=== PATIENT | male | born 1940 | race Asian ===

== ENCOUNTER 2017-05-22 10:07 | Inpatient (IN) | payer OTHER ==
[~2017-05-22] VITALS: Ht 170.2 cm; Wt 73.0 kg
[~2017-05-22 10:07] MED LIST: AMLO5TAB4 PO; LOSA100T11 PO; SIMV10TA6 PO
[2017-05-22 10:25] VITALS: BP_SYST 142
[2017-05-22 13:01] LABS: BASOPHILS % (AUTO) 0.3 % (0.0-2.0); HEMATOCRIT 46.5 % (36-54); HEMOGLOBIN 15.5 g/dL (14.0-18.0); LYMPHOCYTES % (AUTO) 6.4 % (20.5-51.5); MEAN CORPUSCULAR HEMOGLOBIN 31 pg (27-31); MEAN CORPUSCULAR HGB CONC 33 % (32-36); MEAN CORPUSCULAR VOLUME 93 fL (79.0-98.0); MONOCYTES # (AUTO) 1.1 K/uL (0.0-1.0); MONOCYTES % (AUTO) 6.9 % (1.7-9.3); NEUTROPHILS # (AUTO) 13.4 K/uL (1.8-7.7); NEUTROPHILS % (AUTO) 86.4 % (40.0-70.0); PLATELET COUNT (AUTO) 325 K/uL (130-430); RED BLOOD CELL COUNT(AUTO) 5.01 MIL/uL (4.2-6.2); RED CELL DISTRIBUTION WIDTH 12.7 % (9.0-15.0); WHITE BLOOD COUNT (AUTO) 15.5 K/uL (4.8-10.8)
[2017-05-22 13:03] LABS: ANION GAP 16 (5-15); CALCIUM 9.3 mg/dL (8.4-11.0); CHLORIDE 107 mmol/L (98-107); CREATININE 1.38 mg/dL (0.55-1.30); GLUCOSE 158 mg/dL (70-99); SODIUM SERUM 146 mmol/L (136-145); UREA NITROGEN, BLOOD 30 mg/dL (8-21)
[2017-05-22 13:11] LABS: ALANINE AMINOTRANSFERASE 16 U/L (12-78); ALBUMIN 3.8 g/dL (3.4-4.8); AMYLASE 48 U/L (0-100); ASPARTATE AMINOTRANSFERASE 22 U/L (10-37); LIPASE 119 U/L (73-393); TOTAL BILIRUBIN 1.3 mg/dL (0.0-1.0)
[2017-05-22 13:15] LABS: POTASSIUM 2.8 mmol/L (3.5-5.1)
[2017-05-22] MEDS ORDERED: KCL 40 mEq in D5W 1000 mL 1,000 ML IV ONE (13:30)
[2017-05-22] MEDS ORDERED: POTASSIUM CHLORIDE 20 MEQ/PKT PACKET PO ONE (13:30)
[2017-05-22] MEDS ORDERED: SULF1TAB48 PO (13:55)
[2017-05-22] MEDS ORDERED: HYT1 PO (13:55)
[2017-05-22] MEDS ORDERED: GLU850 PO (13:55)
[2017-05-22] MEDS ORDERED: GLIM2TAB2 PO (13:56)
[2017-05-22] MEDS ORDERED: HYDROmorphone 1 MG INJ. 1 MG/ML AMPUL IVP ONE (14:00)
[2017-05-22 17:03] VITALS: BP_SYST 152
[2017-05-22] MEDS ORDERED: ONDANSETRON HCL 4 MG/2 ML VIAL IVP PRN (18:00)
[2017-05-22] MEDS ORDERED: PIPERACILLIN/TAZO 4.5GM/DEX-IS 100 ML IV SCH (18:00)
[2017-05-22] MEDS ORDERED: POTASSIUM CHLORIDE 40 MEQ in 0.45% NS 250 ML IV ONE (18:00)
[2017-05-22] MEDS ORDERED: PANTOPRAZOLE SODIUM 40 MG/VIAL (PROTONIX) IVP SCH (18:30)
[2017-05-22 19:15] VITALS: BP_SYST 124
[2017-05-22] MEDS: PIPERACILLIN/TAZO 4.5GM/DEX-IS 100 ML IV SCH (20:10)
[2017-05-22] MEDS ORDERED: COMMUNICATION ORDER XX ONE (22:15)
[2017-05-22] MEDS: ACETAMINOPHEN 650 MG SUPP.RECT RC PRN (22:18)
[2017-05-22] MEDS ORDERED: METOCLOPRAMIDE HCL 10 MG/2 ML VIAL IVP PRN (22:45)
[2017-05-22 23:12] LABS: HEMATOCRIT 49.1 % (36-54); HEMOGLOBIN 16.1 g/dL (14.0-18.0); MEAN CORPUSCULAR HEMOGLOBIN 30 pg (27-31); MEAN CORPUSCULAR HGB CONC 33 % (32-36); MEAN CORPUSCULAR VOLUME 92 fL (79.0-98.0); PLATELET COUNT (AUTO) 334 K/uL (130-430); RED BLOOD CELL COUNT(AUTO) 5.33 MIL/uL (4.2-6.2); RED CELL DISTRIBUTION WIDTH 12.6 % (9.0-15.0)
[2017-05-22 23:28] LABS: ANION GAP 13 (5-15); CALCIUM 9.3 mg/dL (8.4-11.0); CHLORIDE 106 mmol/L (98-107); CREATININE 1.53 mg/dL (0.55-1.30); GLUCOSE 178 mg/dL (70-99); POTASSIUM 3.5 mmol/L (3.5-5.1); SODIUM SERUM 141 mmol/L (136-145); UREA NITROGEN, BLOOD 36 mg/dL (8-21)
[2017-05-22 23:29] VITALS: BP_SYST 146
[2017-05-22 23:33] LABS: ALANINE AMINOTRANSFERASE 18 U/L (12-78); ALBUMIN 3.6 g/dL (3.4-4.8); ASPARTATE AMINOTRANSFERASE 15 U/L (10-37); TOTAL BILIRUBIN 1.9 mg/dL (0.0-1.0)
[2017-05-22 23:48] LABS: ATYPICAL LYMPHOCYTES % 2 % (0-0); BAND % (MANUAL) 26 % (0-6); BASOPHILS % (MANUAL) 0 % (0-2); EOSINOPHILS % (MANUAL) 0 % (0-7); LYMPHOCYTES % (MANUAL) 3 % (20-46); MONOCYTES % (MANUAL) 2 % (0-11)
[2017-05-23] VITALS (24 sets, daily range): BP systolic 84–162
[2017-05-23] MEDS: PANTOPRAZOLE SODIUM 40 MG in NS 50 ML IVP SCH ×4 (00:58→21:00)
[2017-05-23] MEDS ORDERED: PANTOPRAZOLE SODIUM 40 MG/VIAL (PROTONIX) ONE ×2 (01:04→07:04)
[2017-05-23] MEDS: PIPERACILLIN/TAZO 4.5GM/DEX-IS 100 ML IV SCH ×3 (02:16→19:47)
[2017-05-23 07:28] LABS: HEMATOCRIT 50.4 % (36-54); HEMOGLOBIN 16.4 g/dL (14.0-18.0); LYMPHOCYTES # (AUTO) 0.9 K/uL (1.0-5.5); LYMPHOCYTES % (AUTO) 8.3 % (20.5-51.5); MEAN CORPUSCULAR HEMOGLOBIN 31 pg (27-31); MEAN CORPUSCULAR HGB CONC 32 % (32-36); MEAN CORPUSCULAR VOLUME 94 fL (79.0-98.0); MONOCYTES # (AUTO) 0.4 K/uL (0.0-1.0); MONOCYTES % (AUTO) 3.9 % (1.7-9.3); NEUTROPHILS # (AUTO) 9.5 K/uL (1.8-7.7); PLATELET COUNT (AUTO) 337 K/uL (130-430); RED BLOOD CELL COUNT(AUTO) 5.36 MIL/uL (4.2-6.2); RED CELL DISTRIBUTION WIDTH 13.1 % (9.0-15.0); WHITE BLOOD COUNT (AUTO) 10.8 K/uL (4.8-10.8)
[2017-05-23] MEDS: NACL 0.9% 1,000 ML IV SCH ×2 (07:30→17:30)
[2017-05-23 07:31] LABS: ALANINE AMINOTRANSFERASE 18 U/L (12-78); ALBUMIN 3.3 g/dL (3.4-4.8); ANION GAP 13 (5-15); ASPARTATE AMINOTRANSFERASE 18 U/L (10-37); CALCIUM 9.3 mg/dL (8.4-11.0); CHLORIDE 110 mmol/L (98-107); CREATININE 1.64 mg/dL (0.55-1.30); GLUCOSE 138 mg/dL (70-99); POTASSIUM 3.4 mmol/L (3.5-5.1); SODIUM SERUM 144 mmol/L (136-145); UREA NITROGEN, BLOOD 39 mg/dL (8-21)
[2017-05-23] MEDS ORDERED: GASTROGRAFIN 120 ML ONE (08:48)
[2017-05-23 08:59] LABS: NEUTROPHILS % (AUTO) 87.8 % (40.0-70.0)
[2017-05-23] MEDS ORDERED: NS 500 ML IV ONE (10:00)
[2017-05-23] MEDS: MORPHINE 2 MG/ML INJ. SYRINGE IVP PRN ×2 (10:44→21:16)
[2017-05-23 11:44] LABS: INR 1.1 (0.80-1.20); PROTHROMBIN TIME 11.5 SECS (9.5-12.5)
[2017-05-23] MEDS: metroNIDAZOLE 500 mg/NS 100 ML IV SCH ×4 (12:30→23:28)
[2017-05-23] MEDS ORDERED: NACL 0.9% 1,000 ML IV SCH (12:52)
[2017-05-23] MEDS ORDERED: HYDROmorphone 1 MG INJ. 1 MG/ML AMPUL IVP PRN (13:00)
[2017-05-23] MEDS ORDERED: HYDROmorphone 2 MG/ML VIAL IVP PRN ×2 (13:00)
[2017-05-23] MEDS ORDERED: ePHEDrine sulfate 50 MG/ML VIAL IVP PRN (13:00)
[2017-05-23] MEDS ORDERED: MEPERIDINE HCL/PF 25 MG/ML DISP.SYRIN IVP PRN ×2 (13:00)
[2017-05-23] MEDS ORDERED: ONDANSETRON HCL 4 MG/2 ML VIAL IVP PRN (13:00)
[2017-05-23] MEDS ORDERED: POLYMYXIN 500,000/BACIT.10,000 UNITS in NS IRR 1 L IR ONE (13:30)
[2017-05-23] MEDS ORDERED: NACL 0.9% 1,000 ML IV ONE ×2 (16:59→20:33)
[2017-05-23] MEDS ORDERED: LORazepam 2 MG/ML VIAL IVP PRN (17:15)
[2017-05-23] MEDS: NOREPINEPHRINE BITARTRATE 4 MG in NS 246 ML IV PRN (18:09)
[2017-05-23] MEDS ORDERED: SODIUM BICARBONATE 8.4% JECT 50 MEQ/50 ML SYRINGE IVP ONE (20:45)
[2017-05-23] MEDS ORDERED: SODIUM BICARBONATE 8.4% JECT 50 MEQ/50 ML SYRINGE ONE (20:56)
[2017-05-23 23:34] LABS: BILIRUBIN,URINE 1+ (NEGATIVE); BLOOD, URINE 3+ (NEGATIVE); CLARITY/URINE CLEAR (CLEAR); COLOR,URINE YELLOW (YELLOW); GLUCOSE,URINE NEGATIVE (NEGATIVE); KETONES,URINE TRACE (NEGATIVE); LEUKOCYTE ESTERASE ,URINE NEGATIVE (NEGATIVE); NITRITE, URINE NEGATIVE (NEGATIVE); PH,URINE 5.5 (5.0-8.0); PROTEIN URINE 2+ (NEGATIVE); UROBILINOGEN,URINE 0.2 (0.2-1.0)
[2017-05-23 23:42] LABS: BACTERIA,URINE MODERATE /HPF (None Seen); FINE GRANULAR CASTS,URINE 0-10 /LPF (None Seen); WBC,URINE 0-3 /HPF (0-3)
[2017-05-23 23:48] LABS: ALANINE AMINOTRANSFERASE 57 U/L (12-78); ALBUMIN 2.2 g/dL (3.4-4.8); ANION GAP 15 (5-15); ASPARTATE AMINOTRANSFERASE 81 U/L (10-37); CALCIUM 7.5 mg/dL (8.4-11.0); CREATININE 2.88 mg/dL (0.55-1.30); GLUCOSE 84 mg/dL (70-99); SODIUM SERUM 154 mmol/L (136-145); TOTAL BILIRUBIN 1.1 mg/dL (0.0-1.0); UREA NITROGEN, BLOOD 52 mg/dL (8-21)
[2017-05-23 23:52] LABS: CHLORIDE 121 mmol/L (98-107)
[2017-05-24] VITALS (27 sets, daily range): BP systolic 72–149
[2017-05-24] MEDS ORDERED: HYDROCORTISONE SOD SUCC 100 MG/2 ML VIAL ONE (00:40)
[2017-05-24] MEDS ORDERED: HYDROCORTISONE SOD SUCC 100 MG/2 ML VIAL IVP ONE (00:45)
[2017-05-24] MEDS: D5W 1,000 ML IV SCH ×4 (01:01→14:51)
[2017-05-24] MEDS ORDERED: DEXTROSE 50% JECT 50 ML DISP.SYRIN ONE (01:03)
[2017-05-24] MEDS: ACETAMINOPHEN 650 MG SUPP.RECT RC PRN (02:06)
[2017-05-24] MEDS: PANTOPRAZOLE SODIUM 40 MG in NS 50 ML IVP SCH ×2 (02:07→05:56)
[2017-05-24] MEDS: PIPERACILLIN/TAZO 4.5GM/DEX-IS 100 ML IV SCH ×3 (02:07→17:31)
[2017-05-24] MEDS: NOREPINEPHRINE BITARTRATE 4 MG in NS 246 ML IV PRN ×3 (04:15→22:20)
[2017-05-24] MEDS: metroNIDAZOLE 500 mg/NS 100 ML IV SCH ×3 (05:55→15:00)
[2017-05-24] MEDS: HYDROCORTISONE SOD SUCC 100 MG/2 ML VIAL IVP SCH ×3 (06:01→22:01)
[2017-05-24 06:16] LABS: HEMOGLOBIN 15.9 g/dL (14.0-18.0); LYMPHOCYTES # (AUTO) 0.5 K/uL (1.0-5.5); MEAN CORPUSCULAR HEMOGLOBIN 30 pg (27-31); MEAN CORPUSCULAR HGB CONC 32 % (32-36); MEAN CORPUSCULAR VOLUME 95 fL (79.0-98.0); MONOCYTES # (AUTO) 0.4 K/uL (0.0-1.0); MONOCYTES % (AUTO) 4.4 % (1.7-9.3); NEUTROPHILS # (AUTO) 7.1 K/uL (1.8-7.7); PLATELET COUNT (AUTO) 216 K/uL (130-430); RED BLOOD CELL COUNT(AUTO) 5.28 MIL/uL (4.2-6.2); RED CELL DISTRIBUTION WIDTH 13.5 % (9.0-15.0)
[2017-05-24 06:46] LABS: NEUTROPHILS % (AUTO) 89.6 % (40.0-70.0)
[2017-05-24 06:57] LABS: ALANINE AMINOTRANSFERASE 85 U/L (12-78); ALBUMIN 1.9 g/dL (3.4-4.8); ANION GAP 13 (5-15); ASPARTATE AMINOTRANSFERASE 119 U/L (10-37); CALCIUM 7.2 mg/dL (8.4-11.0); CREATININE 4.25 mg/dL (0.55-1.30); GLUCOSE 215 mg/dL (70-99); POTASSIUM 3.1 mmol/L (3.5-5.1); SODIUM SERUM 152 mmol/L (136-145); TOTAL BILIRUBIN 0.8 mg/dL (0.0-1.0); UREA NITROGEN, BLOOD 58 mg/dL (8-21)
[2017-05-24 07:00] LABS: CHLORIDE 120 mmol/L (98-107)
[2017-05-24] MEDS ORDERED: KCL 20 mEq in 100 mL (PREMIX) 200 ML IV ONE (08:15)
[2017-05-24] MEDS ORDERED: ALBUMIN HUMAN 25% 200 ML IV ONE (08:30)
[2017-05-24] MEDS: PHENYLEPHRINE HCL 30 MG in NS 247 ML IV PRN (09:22)
[2017-05-24] MEDS ORDERED: HEPARIN SODIUM,PORCINE 5000 UNITS/ML VIAL ONE (09:29)
[2017-05-24] MEDS: FLUCONAZOLE 400 mg/ NS 200 ML IV SCH (10:32)
[2017-05-24] MEDS ORDERED: GLUCOSE 15 GM GEL (in 37.5 GM TUBE) PO PRN ×2 (12:45)
[2017-05-24] MEDS ORDERED: DEXTROSE 50%-WATER 50 ML DISP.SYRIN IVP PRN ×2 (12:45)
[2017-05-24 16:48] LABS: URINE SODIUM, RANDOM 21 mmol/L (40-220)
[2017-05-24] MEDS: INSULIN REGULAR, HUMAN 100 UNITS/ML, 10 ML VIAL (novoLIN R) SUBCUT PRN (17:19)
[2017-05-24] MEDS ORDERED: DIGOXIN 0.5 MG/2 ML AMP IVP ONE (18:30)
[2017-05-24] MEDS ORDERED: DIGOXIN 0.5 MG/2 ML AMP ONE (18:34)
[2017-05-24] MEDS ORDERED: NOREPINEPHRINE 4 MG/4 ML VIAL IV ONE (20:37)
[2017-05-25] VITALS (30 sets, daily range): BP systolic 79–143
[2017-05-25] MEDS: PIPERACILLIN/TAZO 4.5GM/DEX-IS 100 ML IV SCH ×3 (02:41→19:23)
[2017-05-25] MEDS: D5W 1,000 ML IV SCH ×4 (02:41→23:40)
[2017-05-25] MEDS ORDERED: NOREPINEPHRINE 4 MG/4 ML VIAL IV ONE (04:15)
[2017-05-25 06:20] LABS: INR 1.4 (0.80-1.20); PROTHROMBIN TIME 15.8 SECS (9.5-12.5)
[2017-05-25] MEDS: metroNIDAZOLE 500 mg/NS 100 ML IV SCH ×3 (06:20→21:38)
[2017-05-25] MEDS: HYDROCORTISONE SOD SUCC 100 MG/2 ML VIAL IVP SCH ×3 (06:21→21:37)
[2017-05-25 06:24] LABS: BASOPHILS % (AUTO) 0.1 % (0.0-2.0); EOSINOPHILS % (AUTO) 0.1 % (0.0-4.0); LYMPHOCYTES # (AUTO) 0.5 K/uL (1.0-5.5); LYMPHOCYTES % (AUTO) 4.7 % (20.5-51.5); MEAN CORPUSCULAR HEMOGLOBIN 32 pg (27-31); MEAN CORPUSCULAR HGB CONC 34 % (32-36); MEAN CORPUSCULAR VOLUME 93 fL (79.0-98.0); MONOCYTES # (AUTO) 0.4 K/uL (0.0-1.0); MONOCYTES % (AUTO) 3.8 % (1.7-9.3); NEUTROPHILS # (AUTO) 9.2 K/uL (1.8-7.7); NEUTROPHILS % (AUTO) 91.3 % (40.0-70.0); PLATELET COUNT (AUTO) 161 K/uL (130-430); RED BLOOD CELL COUNT(AUTO) 4.09 MIL/uL (4.2-6.2); RED CELL DISTRIBUTION WIDTH 13.3 % (9.0-15.0); WHITE BLOOD COUNT (AUTO) 10.1 K/uL (4.8-10.8)
[2017-05-25 06:51] LABS: ALANINE AMINOTRANSFERASE 83 U/L (12-78); ALBUMIN 2.2 g/dL (3.4-4.8); ANION GAP 13 (5-15); ASPARTATE AMINOTRANSFERASE 90 U/L (10-37); CHLORIDE 110 mmol/L (98-107); CREATININE 5.22 mg/dL (0.55-1.30); GLUCOSE 207 mg/dL (70-99); SODIUM SERUM 143 mmol/L (136-145); TOTAL BILIRUBIN 0.8 mg/dL (0.0-1.0); UREA NITROGEN, BLOOD 57 mg/dL (8-21)
[2017-05-25] MEDS: INSULIN REGULAR, HUMAN 100 UNITS/ML, 10 ML VIAL (novoLIN R) SUBCUT PRN (06:56)
[2017-05-25 07:03] LABS: CALCIUM 6.9 mg/dL (8.4-11.0); POTASSIUM 2.3 mmol/L (3.5-5.1)
[2017-05-25] MEDS: NOREPINEPHRINE BITARTRATE 4 MG in NS 246 ML IV PRN ×2 (08:12→19:57)
[2017-05-25] MEDS: FLUCONAZOLE 400 mg/ NS 200 ML IV SCH (08:26)
[2017-05-25] MEDS: MORPHINE 2 MG/ML INJ. SYRINGE IVP PRN ×2 (08:36→17:07)
[2017-05-25] MEDS: ACETAMINOPHEN 650 MG SUPP.RECT RC PRN (08:45)
[2017-05-25] MEDS ORDERED: KCL 40 mEq in 100 mL (PREMIX) 100 ML IV ONE (08:45)
[2017-05-25] MEDS ORDERED: CALCIUM GLUCONATE 1 GM in NS 100 ML IV ONE (08:45)
[2017-05-26] VITALS (30 sets, daily range): BP systolic 95–161
[2017-05-26] MEDS: PIPERACILLIN/TAZO 4.5GM/DEX-IS 100 ML IV SCH ×3 (02:58→18:04)
[2017-05-26] MEDS: HYDROCORTISONE SOD SUCC 100 MG/2 ML VIAL IVP SCH ×2 (05:18→20:35)
[2017-05-26] MEDS: metroNIDAZOLE 500 mg/NS 100 ML IV SCH ×3 (05:19→21:24)
[2017-05-26] MEDS: INSULIN REGULAR, HUMAN 100 UNITS/ML, 10 ML VIAL (novoLIN R) SUBCUT PRN (05:39)
[2017-05-26 06:40] LABS: ALANINE AMINOTRANSFERASE 94 U/L (12-78); ANION GAP 13 (5-15); ASPARTATE AMINOTRANSFERASE 88 U/L (10-37); BILIRUBIN,DIRECT 0.3 mg/dL (0.0-0.3); CALCIUM 7.1 mg/dL (8.4-11.0); CHLORIDE 110 mmol/L (98-107); CREATININE 4.84 mg/dL (0.55-1.30); GLUCOSE 221 mg/dL (70-99); SODIUM SERUM 143 mmol/L (136-145); TOTAL BILIRUBIN 0.6 mg/dL (0.0-1.0); UREA NITROGEN, BLOOD 56 mg/dL (8-21)
[2017-05-26 06:48] LABS: POTASSIUM 2.6 mmol/L (3.5-5.1)
[2017-05-26 06:50] LABS: BASOPHILS % (AUTO) 0.1 % (0.0-2.0); HEMATOCRIT 37.5 % (36-54); HEMOGLOBIN 12.4 g/dL (14.0-18.0); LYMPHOCYTES # (AUTO) 0.3 K/uL (1.0-5.5); LYMPHOCYTES % (AUTO) 2.7 % (20.5-51.5); MEAN CORPUSCULAR HEMOGLOBIN 31 pg (27-31); MEAN CORPUSCULAR HGB CONC 33 % (32-36); MEAN CORPUSCULAR VOLUME 94 fL (79.0-98.0); MONOCYTES # (AUTO) 0.3 K/uL (0.0-1.0); MONOCYTES % (AUTO) 3.2 % (1.7-9.3); NEUTROPHILS # (AUTO) 9.2 K/uL (1.8-7.7); PLATELET COUNT (AUTO) 128 K/uL (130-430); RED BLOOD CELL COUNT(AUTO) 4.01 MIL/uL (4.2-6.2); RED CELL DISTRIBUTION WIDTH 13.7 % (9.0-15.0); WHITE BLOOD COUNT (AUTO) 9.8 K/uL (4.8-10.8)
[2017-05-26] MEDS ORDERED: POTASSIUM CHLORIDE 40 MEQ in NS 250 ML IV ONE (07:30)
[2017-05-26] MEDS: FLUCONAZOLE 400 mg/ NS 200 ML IV SCH (09:26)
[2017-05-26] MEDS: D5W 1,000 ML IV SCH ×2 (12:00→20:36)
[2017-05-26] MEDS: MORPHINE 2 MG/ML INJ. SYRINGE IVP PRN ×2 (16:00→23:30)
[2017-05-27] VITALS (33 sets, daily range): BP systolic 88–173
[2017-05-27] MEDS: PIPERACILLIN/TAZO 4.5GM/DEX-IS 100 ML IV SCH ×2 (02:46→17:53)
[2017-05-27] MEDS: D5W 1,000 ML IV SCH ×3 (03:12→18:36)
[2017-05-27] MEDS: metroNIDAZOLE 500 mg/NS 100 ML IV SCH ×3 (05:12→21:40)
[2017-05-27 06:27] LABS: BASOPHILS % (AUTO) 0.3 % (0.0-2.0); HEMATOCRIT 42.2 % (36-54); HEMOGLOBIN 13.8 g/dL (14.0-18.0); LYMPHOCYTES # (AUTO) 0.4 K/uL (1.0-5.5); MEAN CORPUSCULAR HEMOGLOBIN 31 pg (27-31); MEAN CORPUSCULAR HGB CONC 33 % (32-36); MEAN CORPUSCULAR VOLUME 94 fL (79.0-98.0); MONOCYTES # (AUTO) 0.4 K/uL (0.0-1.0); MONOCYTES % (AUTO) 2.5 % (1.7-9.3); NEUTROPHILS # (AUTO) 13.9 K/uL (1.8-7.7); NEUTROPHILS % (AUTO) 94.2 % (40.0-70.0); PLATELET COUNT (AUTO) 156 K/uL (130-430); RED BLOOD CELL COUNT(AUTO) 4.51 MIL/uL (4.2-6.2); RED CELL DISTRIBUTION WIDTH 13.6 % (9.0-15.0); WHITE BLOOD COUNT (AUTO) 14.7 K/uL (4.8-10.8)
[2017-05-27 06:51] LABS: ALANINE AMINOTRANSFERASE 102 U/L (12-78); ALBUMIN 2.2 g/dL (3.4-4.8); ANION GAP 13 (5-15); ASPARTATE AMINOTRANSFERASE 72 U/L (10-37); BILIRUBIN,DIRECT 0.4 mg/dL (0.0-0.3); CALCIUM 7.7 mg/dL (8.4-11.0); CHLORIDE 113 mmol/L (98-107); CREATININE 4.38 mg/dL (0.55-1.30); GLUCOSE 208 mg/dL (70-99); SODIUM SERUM 148 mmol/L (136-145); TOTAL BILIRUBIN 0.8 mg/dL (0.0-1.0); UREA NITROGEN, BLOOD 56 mg/dL (8-21)
[2017-05-27 06:58] LABS: POTASSIUM 2.3 mmol/L (3.5-5.1)
[2017-05-27] MEDS: HYDROCORTISONE SOD SUCC 100 MG/2 ML VIAL IVP SCH ×2 (08:39→20:46)
[2017-05-27] MEDS: FLUCONAZOLE 400 mg/ NS 200 ML IV SCH (08:39)
[2017-05-27] MEDS ORDERED: POTASSIUM CHLORIDE 40 MEQ in NS 250 ML IV ONE (09:30)
[2017-05-27] MEDS ORDERED: DEXTROSE 50% JECT 50 ML DISP.SYRIN IVP PRN (09:30)
[2017-05-27] MEDS ORDERED: *TPN PER PHARMACY XX PRN (09:30)
[2017-05-27] MEDS: MORPHINE 2 MG/ML INJ. SYRINGE IVP PRN ×6 (09:48→23:48)
[2017-05-27] MEDS ORDERED: FLUCONAZOLE 200 mg/ NS 100 ML IV SCH (10:15)
[2017-05-27] MEDS: KCL 40 mEq in 100 mL (PREMIX) 100 ML IV ONE ×2 (10:25→11:08)
[2017-05-27 11:05] LABS: PHOSPHORUS 2.8 mg/dL (2.7-4.5)
[2017-05-27] MEDS: INSULIN REGULAR, HUMAN 100 UNITS/ML, 10 ML VIAL (novoLIN R) SUBCUT PRN ×2 (15:25→21:41)
[2017-05-27] MEDS: FAT EMULSIONS 250 ML IV SCH (17:56)
[2017-05-27] MEDS ORDERED: CALCIUM GLUCONATE IV SCH ×7 (18:00)
[2017-05-27] MEDS ORDERED: TPN CENTRAL IV SCH ×7 (18:00)
[2017-05-27] MEDS ORDERED: [UNRECOGNIZED DRUG - OTHER] IV SCH ×7 (18:00)
[2017-05-27] MEDS ORDERED: POTASSIUM ACETATE IV SCH ×7 (18:00)
[2017-05-27] MEDS: LORazepam 2 MG/ML VIAL IVP PRN (20:46)
[2017-05-28] VITALS (35 sets, daily range): BP systolic 115–176
[2017-05-28] MEDS: PIPERACILLIN/TAZO 4.5GM/DEX-IS 100 ML IV SCH ×3 (02:04→17:32)
[2017-05-28] MEDS: LORazepam 2 MG/ML VIAL IVP PRN (02:04)
[2017-05-28] MEDS: INSULIN REGULAR, HUMAN 100 UNITS/ML, 10 ML VIAL (novoLIN R) SUBCUT PRN ×4 (04:35→20:45)
[2017-05-28] MEDS: MORPHINE 2 MG/ML INJ. SYRINGE IVP PRN ×4 (04:36→16:06)
[2017-05-28] MEDS: metroNIDAZOLE 500 mg/NS 100 ML IV SCH ×3 (05:19→21:20)
[2017-05-28 06:29] LABS: EOSINOPHILS % (AUTO) 0.1 % (0.0-4.0); HEMOGLOBIN 12.6 g/dL (14.0-18.0); LYMPHOCYTES # (AUTO) 0.3 K/uL (1.0-5.5); LYMPHOCYTES % (AUTO) 2.3 % (20.5-51.5); MEAN CORPUSCULAR HEMOGLOBIN 31 pg (27-31); MEAN CORPUSCULAR HGB CONC 33 % (32-36); MEAN CORPUSCULAR VOLUME 93 fL (79.0-98.0); MONOCYTES # (AUTO) 0.6 K/uL (0.0-1.0); MONOCYTES % (AUTO) 4.2 % (1.7-9.3); NEUTROPHILS % (AUTO) 93.4 % (40.0-70.0); PLATELET COUNT (AUTO) 148 K/uL (130-430); RED BLOOD CELL COUNT(AUTO) 4.08 MIL/uL (4.2-6.2); RED CELL DISTRIBUTION WIDTH 13.9 % (9.0-15.0); WHITE BLOOD COUNT (AUTO) 13.9 K/uL (4.8-10.8)
[2017-05-28 07:03] LABS: ALANINE AMINOTRANSFERASE 87 U/L (12-78); ALBUMIN 1.8 g/dL (3.4-4.8); ANION GAP 10 (5-15); ASPARTATE AMINOTRANSFERASE 49 U/L (10-37); BILIRUBIN,DIRECT 0.4 mg/dL (0.0-0.3); CALCIUM 7.6 mg/dL (8.4-11.0); CHLORIDE 117 mmol/L (98-107); CREATININE 4.04 mg/dL (0.55-1.30); GLUCOSE 306 mg/dL (70-99); SODIUM SERUM 149 mmol/L (136-145); TOTAL BILIRUBIN 0.9 mg/dL (0.0-1.0); UREA NITROGEN, BLOOD 60 mg/dL (8-21)
[2017-05-28 07:10] LABS: POTASSIUM 2.3 mmol/L (3.5-5.1)
[2017-05-28] MEDS ORDERED: KCL 40 mEq in 100 mL (PREMIX) 100 ML IV ONE ×2 (07:45→12:00)
[2017-05-28] MEDS: D5W 1,000 ML IV SCH ×2 (08:43→17:06)
[2017-05-28] MEDS ORDERED: COMMUNICATION ORDER XX ONE (09:15)
[2017-05-28] MEDS: HYDROCORTISONE SOD SUCC 100 MG/2 ML VIAL IVP SCH ×2 (09:20→20:39)
[2017-05-28] MEDS: FLUCONAZOLE 400 mg/ NS 200 ML IV SCH (09:20)
[2017-05-28] MEDS ORDERED: POTASSIUM CHLORIDE 40 MEQ in 0.45% NS 250 ML IV ONE ×2 (09:30→13:30)
[2017-05-28] MEDS: ACETAMINOPHEN 650 MG SUPP.RECT RC PRN (16:13)
[2017-05-28] MEDS: FAT EMULSIONS 250 ML IV SCH (17:23)
[2017-05-28] MEDS ORDERED: TPN CENTRAL IV SCH ×7 (18:00)
[2017-05-28] MEDS ORDERED: [UNRECOGNIZED DRUG - OTHER] IV SCH ×7 (18:00)
[2017-05-28] MEDS ORDERED: POTASSIUM ACETATE IV SCH ×7 (18:00)
[2017-05-28] MEDS ORDERED: CALCIUM GLUCONATE IV SCH ×7 (18:00)
[2017-05-29] VITALS (32 sets, daily range): BP systolic 89–148
[2017-05-29] MEDS: PIPERACILLIN/TAZO 4.5GM/DEX-IS 100 ML IV SCH ×3 (02:18→19:21)
[2017-05-29] MEDS: INSULIN REGULAR, HUMAN 100 UNITS/ML, 10 ML VIAL (novoLIN R) SUBCUT PRN ×4 (03:19→21:09)
[2017-05-29] MEDS: metroNIDAZOLE 500 mg/NS 100 ML IV SCH ×3 (05:16→21:15)
[2017-05-29 06:53] LABS: ALANINE AMINOTRANSFERASE 77 U/L (12-78); ALBUMIN 1.8 g/dL (3.4-4.8); ANION GAP 11 (5-15); ASPARTATE AMINOTRANSFERASE 35 U/L (10-37); CALCIUM 7.7 mg/dL (8.4-11.0); CHLORIDE 117 mmol/L (98-107); CREATININE 3.96 mg/dL (0.55-1.30); GLUCOSE 345 mg/dL (70-99); PHOSPHORUS 3.8 mg/dL (2.7-4.5); SODIUM SERUM 149 mmol/L (136-145); TRIGLYCERIDES 111 mg/dL (30-150); UREA NITROGEN, BLOOD 57 mg/dL (8-21)
[2017-05-29 07:07] LABS: POTASSIUM 2.7 mmol/L (3.5-5.1)
[2017-05-29 07:10] LABS: HEMATOCRIT 41.6 % (36-54); HEMOGLOBIN 13.4 g/dL (14.0-18.0); LYMPHOCYTES # (AUTO) 0.3 K/uL (1.0-5.5); LYMPHOCYTES % (AUTO) 1.9 % (20.5-51.5); MEAN CORPUSCULAR HEMOGLOBIN 30 pg (27-31); MEAN CORPUSCULAR HGB CONC 32 % (32-36); MEAN CORPUSCULAR VOLUME 94 fL (79.0-98.0); MONOCYTES # (AUTO) 0.8 K/uL (0.0-1.0); MONOCYTES % (AUTO) 5.5 % (1.7-9.3); NEUTROPHILS # (AUTO) 13.2 K/uL (1.8-7.7); NEUTROPHILS % (AUTO) 92.6 % (40.0-70.0); PLATELET COUNT (AUTO) 203 K/uL (130-430); RED BLOOD CELL COUNT(AUTO) 4.45 MIL/uL (4.2-6.2); RED CELL DISTRIBUTION WIDTH 14.1 % (9.0-15.0)
[2017-05-29 07:31] LABS: WHITE BLOOD COUNT (AUTO) 14.3 K/uL (4.8-10.8)
[2017-05-29] MEDS: HYDROCORTISONE SOD SUCC 100 MG/2 ML VIAL IVP SCH ×2 (08:39→20:31)
[2017-05-29] MEDS: FLUCONAZOLE 400 mg/ NS 200 ML IV SCH (08:40)
[2017-05-29] MEDS ORDERED: POTASSIUM CHLORIDE 40 MEQ in 0.45% NS 250 ML IV ONE (09:00)
[2017-05-29] MEDS: D5W 1,000 ML IV SCH (12:18)
[2017-05-29] MEDS: ACETAMINOPHEN 650 MG SUPP.RECT RC PRN ×2 (13:28→20:46)
[2017-05-29] MEDS: POTASSIUM ACETATE IV SCH ×7 (18:21)
[2017-05-29] MEDS: CALCIUM GLUCONATE IV SCH ×7 (18:21)
[2017-05-29] MEDS: [UNRECOGNIZED DRUG - OTHER] IV SCH ×7 (18:21)
[2017-05-29] MEDS: TPN CENTRAL IV SCH ×7 (18:21)
[2017-05-29] MEDS: FAT EMULSIONS 250 ML IV SCH (18:22)
[2017-05-30] VITALS (34 sets, daily range): BP systolic 89–133
[2017-05-30] MEDS: PIPERACILLIN/TAZO 4.5GM/DEX-IS 100 ML IV SCH ×3 (02:11→18:32)
[2017-05-30] MEDS: INSULIN REGULAR, HUMAN 100 UNITS/ML, 10 ML VIAL (novoLIN R) SUBCUT PRN ×4 (03:21→21:42)
[2017-05-30] MEDS: D5W 1,000 ML IV SCH (05:31)
[2017-05-30 06:57] LABS: BASOPHILS # (AUTO) 0.1 K/uL (0.0-0.2); BASOPHILS % (AUTO) 0.6 % (0.0-2.0); HEMOGLOBIN 12.2 g/dL (14.0-18.0); LYMPHOCYTES # (AUTO) 0.7 K/uL (1.0-5.5); LYMPHOCYTES % (AUTO) 5.9 % (20.5-51.5); MEAN CORPUSCULAR HEMOGLOBIN 31 pg (27-31); MEAN CORPUSCULAR HGB CONC 33 % (32-36); MEAN CORPUSCULAR VOLUME 94 fL (79.0-98.0); MONOCYTES # (AUTO) 0.9 K/uL (0.0-1.0); MONOCYTES % (AUTO) 7.4 % (1.7-9.3); NEUTROPHILS # (AUTO) 10.7 K/uL (1.8-7.7); NEUTROPHILS % (AUTO) 86.1 % (40.0-70.0); PLATELET COUNT (AUTO) 186 K/uL (130-430); RED BLOOD CELL COUNT(AUTO) 3.95 MIL/uL (4.2-6.2); RED CELL DISTRIBUTION WIDTH 14.1 % (9.0-15.0); WHITE BLOOD COUNT (AUTO) 12.4 K/uL (4.8-10.8)
[2017-05-30 07:05] LABS: ALANINE AMINOTRANSFERASE 58 U/L (12-78); ALBUMIN 1.6 g/dL (3.4-4.8); ANION GAP 13 (5-15); ASPARTATE AMINOTRANSFERASE 29 U/L (10-37); CALCIUM 7.6 mg/dL (8.4-11.0); CHLORIDE 115 mmol/L (98-107); CREATININE 6.56 mg/dL (0.55-1.30); GLUCOSE 281 mg/dL (70-99); POTASSIUM 3.1 mmol/L (3.5-5.1); SODIUM SERUM 149 mmol/L (136-145); TOTAL BILIRUBIN 0.7 mg/dL (0.0-1.0); UREA NITROGEN, BLOOD 84 mg/dL (8-21)
[2017-05-30] MEDS ORDERED: NOREPINEPHRINE 4 MG/4 ML VIAL IV ONE (08:01)
[2017-05-30] MEDS: FLUCONAZOLE 400 mg/ NS 200 ML IV SCH (08:49)
[2017-05-30] MEDS: HYDROCORTISONE SOD SUCC 100 MG/2 ML VIAL IVP SCH ×2 (08:50→21:35)
[2017-05-30] MEDS ORDERED: ALBUMIN HUMAN 25% 100 ML IV ONE (10:00)
[2017-05-30] MEDS: metroNIDAZOLE 250 mg/NS 50 ML IV SCH ×2 (13:44→21:34)
[2017-05-30] MEDS: CALCIUM GLUCONATE IV SCH ×14 (18:33→23:22)
[2017-05-30] MEDS: POTASSIUM ACETATE IV SCH ×14 (18:33→23:22)
[2017-05-30] MEDS: [UNRECOGNIZED DRUG - OTHER] IV SCH ×14 (18:33→23:22)
[2017-05-30] MEDS: TPN CENTRAL IV SCH ×14 (18:33→23:22)
[2017-05-30] MEDS: FAT EMULSIONS 250 ML IV SCH (18:34)
[2017-05-31] VITALS (30 sets, daily range): BP systolic 52–208
[2017-05-31] MEDS: D5W 1,000 ML IV SCH (01:04)
[2017-05-31] MEDS: PIPERACILLIN/TAZO 4.5GM/DEX-IS 100 ML IV SCH ×3 (02:41→18:01)
[2017-05-31] MEDS: INSULIN REGULAR, HUMAN 100 UNITS/ML, 10 ML VIAL (novoLIN R) SUBCUT PRN ×4 (03:38→23:07)
[2017-05-31] MEDS: metroNIDAZOLE 250 mg/NS 50 ML IV SCH ×3 (05:11→23:09)
[2017-05-31 06:54] LABS: HEMATOCRIT 35.7 % (36-54); HEMOGLOBIN 12.4 g/dL (14.0-18.0); MEAN CORPUSCULAR HEMOGLOBIN 31 pg (27-31); MEAN CORPUSCULAR HGB CONC 35 % (32-36); MEAN CORPUSCULAR VOLUME 90 fL (79.0-98.0); PLATELET COUNT (AUTO) 197 K/uL (130-430); RED BLOOD CELL COUNT(AUTO) 3.96 MIL/uL (4.2-6.2); RED CELL DISTRIBUTION WIDTH 13.5 % (9.0-15.0); WHITE BLOOD COUNT (AUTO) 22.7 K/uL (4.8-10.8)
[2017-05-31 07:02] LABS: ALANINE AMINOTRANSFERASE 55 U/L (12-78); ALBUMIN 2.2 g/dL (3.4-4.8); ANION GAP 15 (5-15); ASPARTATE AMINOTRANSFERASE 26 U/L (10-37); CALCIUM 7.8 mg/dL (8.4-11.0); CHLORIDE 103 mmol/L (98-107); CREATININE 5.63 mg/dL (0.55-1.30); GLUCOSE 313 mg/dL (70-99); PHOSPHORUS 4.8 mg/dL (2.7-4.5); SODIUM SERUM 140 mmol/L (136-145); TOTAL BILIRUBIN 0.9 mg/dL (0.0-1.0); TRIGLYCERIDES 206 mg/dL (30-150); UREA NITROGEN, BLOOD 70 mg/dL (8-21)
[2017-05-31 07:12] LABS: POTASSIUM 2.2 mmol/L (3.5-5.1)
[2017-05-31 08:14] LABS: ATYPICAL LYMPHOCYTES % 0 % (0-0); BAND % (MANUAL) 2 % (0-6); LYMPHOCYTES % (MANUAL) 5 % (20-46); MONOCYTES % (MANUAL) 3 % (0-11)
[2017-05-31] MEDS ORDERED: POTASSIUM CHLORIDE 40 MEQ in D5W 250 ML IV ONE (08:30)
[2017-05-31] MEDS: HYDROCORTISONE SOD SUCC 100 MG/2 ML VIAL IVP SCH ×2 (08:32→23:22)
[2017-05-31 08:39] LABS: BASOPHILS % (MANUAL) 0 % (0-2); EOSINOPHILS % (MANUAL) 0 % (0-7)
[2017-05-31] MEDS: MORPHINE 2 MG/ML INJ. SYRINGE IVP PRN (13:36)
[2017-05-31] MEDS: LORazepam 2 MG/ML VIAL IVP PRN ×2 (15:29→17:57)
[2017-05-31] MEDS: ACETAMINOPHEN 650 MG SUPP.RECT RC PRN (16:18)
[2017-05-31] MEDS ORDERED: HEPARIN SODIUM,PORCINE 5000 UNITS/ML VIAL IV ONE (17:15)
[2017-05-31] MEDS ORDERED: TPN CENTRAL IV SCH ×8 (18:00)
[2017-05-31] MEDS ORDERED: POTASSIUM ACETATE IV SCH ×8 (18:00)
[2017-05-31] MEDS ORDERED: CALCIUM GLUCONATE IV SCH ×8 (18:00)
[2017-05-31] MEDS ORDERED: [UNRECOGNIZED DRUG - OTHER] IV SCH ×8 (18:00)
[2017-05-31] MEDS: FAT EMULSIONS 250 ML IV SCH (18:03)
[2017-05-31] MEDS ORDERED: SODIUM BICARBONATE 8.4% JECT 50 MEQ/50 ML SYRINGE IVP ONE ×3 (18:45→20:00)
[2017-05-31] MEDS: NOREPINEPHRINE BITARTRATE 4 MG in NS 246 ML IV PRN (19:00)
[2017-05-31] MEDS: SODIUM BICARBONATE 8.4% JECT 50 MEQ/50 ML SYRINGE ONE ×2 (19:28→19:47)
[2017-05-31] MEDS ORDERED: SODIUM BICARBONATE 8.4% JECT 50 MEQ/50 ML SYRINGE IVP SCH (20:00)
[2017-05-31] MEDS ORDERED: NOREPINEPHRINE 4 MG/4 ML VIAL IV ONE (22:09)
[2017-05-31] MEDS ORDERED: PHENYLEPHRINE HCL 30 MG in NS 247 ML IV PRN (22:30)
[2017-05-31] MEDS ORDERED: PHENYLEPHRINE HCL 10 MG/ML VIAL (NEOSYNEPHRINE) ONE (22:30)
[2017-05-31] MEDS: PHENYLEPHRINE HCL 30 MG in NS 247 ML IV PRN (22:58)
[2017-06-01] VITALS (15 sets, daily range): BP systolic 60–137
[2017-06-01] MEDS: HYDROCORTISONE SOD SUCC 100 MG/2 ML VIAL IVP SCH ×3 (00:05→12:00)
[2017-06-01] MEDS ORDERED: SODIUM BICARBONATE 8.4% JECT 50 MEQ/50 ML SYRINGE ONE ×2 (00:08→00:20)
[2017-06-01] MEDS ORDERED: NOREPINEPHRINE 4 MG/4 ML VIAL IV ONE ×6 (00:22→07:32)
[2017-06-01] MEDS ORDERED: PHENYLEPHRINE HCL 10 MG/ML VIAL (NEOSYNEPHRINE) ONE ×4 (00:22→03:55)
[2017-06-01] MEDS ORDERED: SODIUM BICARBONATE 8.4% JECT 50 MEQ/50 ML SYRINGE IVP ONE ×2 (00:30→08:45)
[2017-06-01] MEDS: NOREPINEPHRINE BITARTRATE 4 MG in NS 246 ML IV PRN ×3 (00:32→05:18)
[2017-06-01] MEDS: PHENYLEPHRINE HCL 30 MG in NS 247 ML IV PRN ×4 (00:35→06:17)
[2017-06-01] MEDS: D5W 1,000 ML IV SCH ×2 (00:53→01:01)
[2017-06-01] MEDS: PIPERACILLIN/TAZO 4.5GM/DEX-IS 100 ML IV SCH ×2 (02:15→10:30)
[2017-06-01] MEDS ORDERED: SODIUM BICARBONATE 8.4% JECT 50 MEQ/50 ML SYRINGE IVP SCH ×2 (02:30→03:30)
[2017-06-01] MEDS: INSULIN REGULAR, HUMAN 100 UNITS/ML, 10 ML VIAL (novoLIN R) SUBCUT PRN (03:52)
[2017-06-01] MEDS: metroNIDAZOLE 250 mg/NS 50 ML IV SCH (06:13)
[2017-06-01 06:50] LABS: HEMATOCRIT 43.7 % (36-54); HEMOGLOBIN 14.7 g/dL (14.0-18.0); MEAN CORPUSCULAR HEMOGLOBIN 31 pg (27-31); MEAN CORPUSCULAR HGB CONC 34 % (32-36); MEAN CORPUSCULAR VOLUME 92 fL (79.0-98.0); PLATELET COUNT (AUTO) 198 K/uL (130-430); RED BLOOD CELL COUNT(AUTO) 4.74 MIL/uL (4.2-6.2); RED CELL DISTRIBUTION WIDTH 13.5 % (9.0-15.0)
[2017-06-01 06:56] LABS: ALANINE AMINOTRANSFERASE 310 U/L (12-78); ALBUMIN 1.6 g/dL (3.4-4.8); ANION GAP 15 (5-15); ASPARTATE AMINOTRANSFERASE 970 U/L (10-37); CHLORIDE 102 mmol/L (98-107); GLUCOSE 118 mg/dL (70-99); PHOSPHORUS 6.5 mg/dL (2.7-4.5); POTASSIUM 4.2 mmol/L (3.5-5.1); SODIUM SERUM 147 mmol/L (136-145); TOTAL BILIRUBIN 1.1 mg/dL (0.0-1.0); TRIGLYCERIDES 128 mg/dL (30-150); UREA NITROGEN, BLOOD 93 mg/dL (8-21)
[2017-06-01 07:05] LABS: CREATININE 8.05 mg/dL (0.55-1.30)
[2017-06-01 07:36] LABS: WHITE BLOOD COUNT (AUTO) 36.6 K/uL (4.8-10.8)
[2017-06-01] MEDS ORDERED: NOREPINEPHRINE BITARTRATE 8 MG in NS 242 ML IV PRN (07:45)
[2017-06-01] MEDS ORDERED: VANCOMYCIN HCL 1 GM/NS PREMIX 250 ML IV ONE (08:45)
[2017-06-01] MEDS ORDERED: HYDROCORTISONE SOD SUCC 100 MG/2 ML VIAL IVP SCH (09:00)
[2017-06-01] MEDS ORDERED: DOPamine PREMIX 250 ML IV PRN (09:45)
[2017-06-01 09:56] LABS: ATYPICAL LYMPHOCYTES % 0 % (0-0); BAND % (MANUAL) 61 % (0-6); BASOPHILS % (MANUAL) 0 % (0-2); EOSINOPHILS % (MANUAL) 0 % (0-7); LYMPHOCYTES % (MANUAL) 2 % (20-46); MONOCYTES % (MANUAL) 0 % (0-11)
[2017-06-01 12:08] LABS: HEPATITIS B SURFACE AG Negative (Negative); HEPATITIS C VIRUS AB <0.1 s/co ratio (0.0-0.9)
== END 2017-06-01 12:35 | disposition expired | DRG 853 ==
LOC: SED 10:07 → SMU 15:41 → STU 20:43 → SIC 23:41
PROVIDERS: ADMIT Family Medicine; ATTEND Family Medicine
PROC: 0DTF0ZZ Resection of Right Large Intestine, Open Approach (ICD-10-PCS; 2017-05-23)
PROC: 5A1955Z Respiratory Ventilation, Greater than 96 Consecutive Hours (ICD-10-PCS; 2017-05-23)
PROC: 0BH17EZ Insertion of Endotracheal Airway into Trachea, Via Natural or Artificial Opening (ICD-10-PCS; 2017-05-23)
PROC: 0D1B0Z4 Bypass Ileum to Cutaneous, Open Approach (ICD-10-PCS; principal; 2017-05-23 12:00)
PROC: 02HV33Z Insertion of Infusion Device into Superior Vena Cava, Percutaneous Approach (ICD-10-PCS; 2017-05-24)
PROC: B548ZZA Ultrasonography of Superior Vena Cava, Guidance (ICD-10-PCS; 2017-05-24)
PROC: 5A1D60Z (ICD-10-PCS; 2017-05-26)
PROC: 3E0336Z Introduction of Nutritional Substance into Peripheral Vein, Percutaneous Approach (ICD-10-PCS; 2017-05-28)
PROC: 02HV33Z Insertion of Infusion Device into Superior Vena Cava, Percutaneous Approach (ICD-10-PCS; 2017-05-29)
PROC: B548ZZA Ultrasonography of Superior Vena Cava, Guidance (ICD-10-PCS; 2017-05-29)
PROC: 5A12012 Performance of Cardiac Output, Single, Manual (ICD-10-PCS; 2017-05-31)
DX: A41.9 Sepsis, unspecified organism (principal); K63.1 Perforation of intestine (nontraumatic); N17.0 Acute kidney failure with tubular necrosis; R65.21 Severe sepsis with septic shock; J95.821 Acute postprocedural respiratory failure; K72.00 Acute and subacute hepatic failure without coma; J18.9 Pneumonia, unspecified organism; G93.1 Anoxic brain damage, not elsewhere classified; K56.60 Unspecified intestinal obstruction; K35.3 Acute appendicitis with localized peritonitis; E87.0 Hyperosmolality and hypernatremia; K55.9 Vascular disorder of intestine, unspecified; E87.2 Acidosis; K56.7 Ileus, unspecified; K59.39 Other megacolon; Z99.11 Dependence on respirator [ventilator] status; J32.0 Chronic maxillary sinusitis; B96.20 Unspecified Escherichia coli [E. coli] as the cause of diseases classified elsewhere; B96.6 Bacteroides fragilis [B. fragilis] as the cause of diseases classified elsewhere; B95.2 Enterococcus as the cause of diseases classified elsewhere; I46.9 Cardiac arrest, cause unspecified; E11.65 Type 2 diabetes mellitus with hyperglycemia; E87.6 Hypokalemia; I10 Essential (primary) hypertension; E78.5 Hyperlipidemia, unspecified; N40.0 Benign prostatic hyperplasia without lower urinary tract symptoms; Y83.8 Other surgical procedures as the cause of abnormal reaction of the patient, or of later complication, without mention of misadventure at the time of the procedure; Y92.238 Other place in hospital as the place of occurrence of the external cause; E86.9 Volume depletion, unspecified; K59.09 Other constipation; R31.0 Gross hematuria; Z79.84 Long term (current) use of oral hypoglycemic drugs; Z79.899 Other long term (current) drug therapy; Y93.89 Activity, other specified; Y99.8 Other external cause status; Z87.442 Personal history of urinary calculi; Z66 Do not resuscitate
CPT/HCPCS: 36415; 36600; 70450-TC; 71010; 74000-TC; 74240-TC; 74250-TC; 76700-TC; 80053; 80076; 81000-TC; 82140-TC; 82150-TC; 82248-TC; 82570-TC; 82803-TC; 82962; 83605; 83690-TC; 83735-TC; 83880; 84100-TC; 84302-TC; 84478-TC; 84484; 85007; 85025; 85027; 85610-TC; 85730-TC; 86706; 86803; 86886; 86900; 86901; 86920; 87040-TC; 87070-TC; 87075-TC; 87081; 87086; 87186-TC; 87205-TC; 87340; 88307; 90935; 90937; 92950; 93005; 93306; 94002; 94003; 94640; 96374; 99285; A5061; C1751; C9113; J0610; J1160; J1170; J1265; J1450; J1644; J1720; J1815; J2060; J2270; J2370; J2543; J2765; J3370; J3475; J3480; J3490; J7030; J7040; J7042; J7050; J7060; P9046; Q9963